=== PATIENT | female | born 1985 | race Caucasian/White ===

== ENCOUNTER 2017-09-11 14:46 | Emergency (ER) | payer OTHER ==
--- NOTE | 2017-09-11 14:58 | ED Physician Documentation ---
General Adult - HISTORIAN Historian: patient - HPI Stated Complaint: lightheaded, chest pressure Chief Complaint: General Adult Onset: hours Timing: still present Further Comments: yes (Pt is a 31 yo female who has had abd issues--diarrhea, constipation, bloating after eating even small meals. Pt had a colonoscopy this am and was found to have low BP=88/52 prior to the procedure. Pt was given a lesser than usual dose given Propofol because of her BP. Pt was d/c'd to home and later in the day, developed dizziness, tingling in hands and feet. She felt that her legs were very heavy and she had tightness in her chest. Pt has had endoscopic studies before and believes she had Propofol previously, and did not have BP problems on these occasions.) - ROS CONST: weakness CVS/RESP: chest pain (tightness) GI/: nausea, other (colonoscopy this am) MS/SKIN/LYMPH: none NEURO/PSYCH: dizziness, tingling - PAST HX Past History: other (GI problems) Allergies/Adverse Reactions: Allergies Allergy/AdvReac Type Severity Reaction Status Date / Time amoxicillin [Amoxicillin] Allergy Mild Verified 09/11/17 15:19 - SOCIAL HX Smoking History: cigarettes - FAMILY HX Family History: No - VITAL SIGNS Vital Signs: Vital Signs Temp Pulse Resp BP Pulse Ox 115/52 01/13/14 21:49 - REVIEWED ASSESSMENTS Nursing Assessment Reviewed: Yes Vitals Reviewed: Yes Progress - Progress Progress: Pt had a neg test prior to colonoscopy this am. BP prior to colonoscopy this am was 88/52. D/w Dr. Gardner, [facility]. GI who reviewed record of colonoscopy, though he was not involved in the procedure himself. Dr. Gardner stated that the anesthesia report had not been dictated yet, but as far as he could tell from the colonoscopy report, the pt got 1 L IVF. It did not appear that bx's were taken , he said, but a CT might be done if there were concern for perforation on the basis of clinical exam. u/a - neg NS 1 L BP 81/46 NS 1 L IVF BP 86/57 Pt declined further IVF and declined CT scan and signed out AMA. Pt did not appear to have significant distress during the course of her ER visit , and stated that her chest tightness had subsided at the time of discharge. - EKG/XRAY/CT EKG: NSR (HR=81; normal axis; normal KS interval.) General Adult Physical Exam - PHYSICAL EXAM GENERAL APPEARANCE: mild distress EENT: pharynx normal NECK: normal inspection, supple RESPIRATORY: no resp distress, chest non-tender, breath sounds normal CVS: reg rate & rhythm, heart sounds normal ABDOMEN: soft, non-tender, decreased BS BACK: normal inspection, no CVA tenderness SKIN: warm/dry, normal color EXTREMITIES: non-tender, normal range of motion, no edema NEURO: oriented X3, motor nml, sensation nml Discharge Clincal Impression: s/p colonoscopy today Hypotension Qualifiers: Hypotension type: unspecified hypotension type Qualified Code(s): I95.9 - Hypotension, unspecified Referrals: Primary Doctor,No [Primary Care Provider] - Condition: Stable Disposition: 07 AGAINST MEDICAL ADVICE Decision to Admit: NO Decision Time: 18:55
[2017-09-11 15:16] LABS: BASOPHILS % 0.3 (0.0-1.5); EOSINOPHILS % 1.5 % (0.0-6.8); MEAN CORPUSCULAR HEMOGLOBIN 31.4 pg (28.0-34.0); MEAN CORPUSCULAR VOLUME 93.8 fl (80.0-100.0); MONOCYTES % 3.1 % (0.0-11.0); NEUTROPHILS # 3.4 # k/uL (1.4-7.7)
[2017-09-11] MEDS: 0.9 % SODIUM CHLORIDE 500 ML IV ONE ×2 (15:20→16:32)
[2017-09-11 15:33] LABS: eGFR (African) > 60; eGFR (Non-African) > 60
[2017-09-11] MEDS: 0.9 % SODIUM CHLORIDE 1,000 ML IV ONE (17:32)
[2017-09-11] MEDS ORDERED: 0.9 % SODIUM CHLORIDE 500 ML IV ONE (18:30)
[2017-09-11 18:55] VITALS: BP 86/57
[2017-09-12 06:01] LABS: APPEARANCE,URINE CLEAR (CLEAR); COLOR,URINE YELLOW (YELLOW)
[2017-09-12 06:02] LABS: OCCULT BLOOD,URINE NEGATIVE (NEGATIVE); UROBILINOGEN URINE 0.2 Eu (0.2-1.0)
== END 2017-09-11 18:52 | disposition left against medical advice (07) ==
LOC: ED 14:46
DX: I95.9 Hypotension, unspecified (principal)
CPT/HCPCS: 80053; 81002; 84484; 85025; 96365; 96366; 99282; 99283; J7060; J7030; S1016

== ENCOUNTER 2017-09-12 05:42 | Emergency (ER) | payer OTHER ==
--- NOTE | 2017-09-12 06:11 | ED Physician Documentation ---
General Adult - HISTORIAN Historian: patient, other (grandma ) - HPI Stated Complaint: facial swelling, extremity weakness Chief Complaint: General Adult Onset: hours (1) Timing: still present Severity: mild Further Comments: yes (she feels her face hands and feet are swollen. She states the roof of her mouth is sore . She was seen last night for low blood pressure post colonoscopy and she left AMA . She reports that she was given several bags of fluids and is not sure if that is why she is swollen. She states she slept fine. Denies any abdominal pain.) Last known Well Code/Unknown Code: Unknown - ROS CONST: no problems GI/: none MS/SKIN/LYMPH: ankle swelling, other (pedal swelling and facial ) NEURO/PSYCH: denies: headache, fainting, dizziness, tingling, numbness, difficulty walking, difficulty with speech - PAST HX Past History: none Surgeries/Procedures: other (colonocsopy yesterday ) Immunizations: UTD Allergies/Adverse Reactions: Allergies Allergy/AdvReac Type Severity Reaction Status Date / Time amoxicillin [Amoxicillin] Allergy Mild Verified 09/12/17 06:06 steroids AdvReac Hallucinati Uncoded 09/12/17 06:06 ons - SOCIAL HX Smoking History: non-smoker Alcohol Use: none Drug Use: none - FAMILY HX Family History: No - VITAL SIGNS Vital Signs: Vital Signs Temp Pulse Resp BP Pulse Ox 97.5 F L 94 H 16 105/73 100 09/12/17 05:42 09/12/17 05:42 09/12/17 05:42 09/12/17 05:42 09/12/17 05:42 - REVIEWED ASSESSMENTS Nursing Assessment Reviewed: Yes Vitals Reviewed: Yes Progress - Progress Progress: 0646: Labs discussed. Pt and mom are asking why the roof of her mouth is sore. No obvious injuries. Did encourage her to call her surgeon after the office opens. She is asking if she can take benadryl. DG General Adult Physical Exam - PHYSICAL EXAM GENERAL APPEARANCE: no distress EENT: eye inspection normal, ENT inspection normal NECK: normal inspection RESPIRATORY: no resp distress, chest non-tender, breath sounds normal CVS: reg rate & rhythm, heart sounds normal, equal pulses, no murmur ABDOMEN: soft, no organomegaly, normal bowel sounds, no distension, non-tender SKIN: warm/dry, normal color EXTREMITIES: non-tender, normal range of motion, no edema NEURO: oriented X3, CN's nml as tested, motor nml, sensation nml, mood/affect nml, cognition normal Discharge Clincal Impression: Swelling Referrals: Abeba Cole MD [Primary Care Provider] - 2 Days Comments: Continue to push fluids Call surgeon about mouth pain Benadryl as needed Return to ER for any concerns Condition: Stable Disposition: 01 HOME, SELF-CARE Decision to Admit: NO (t) Date of Decison to Admit: 09/12/17 Decision Time: 06:56
[2017-09-12 06:24] LABS: BASOPHILS % 0.5 (0.0-1.5); EOSINOPHILS % 1.9 % (0.0-6.8); MEAN CORPUSCULAR VOLUME 92.6 fl (80.0-100.0); MONOCYTES % 4.3 % (0.0-11.0); NEUTROPHILS # 2.3 # k/uL (1.4-7.7)
[2017-09-12 06:42] LABS: eGFR (African) > 60; eGFR (Non-African) > 60
[2017-09-12 07:03] VITALS: BP 94/69
== END 2017-09-12 07:00 | disposition home or self-care (01) ==
LOC: ED 05:42
DX: R60.9 Edema, unspecified (principal)
CPT/HCPCS: 80053; 85025; 99282

== ENCOUNTER 2018-04-10 15:58 | Outpatient (CLI) | payer OTHER | END 2018-04-10 16:14 | disposition home or self-care (01) | LOC: LABRHC 15:58 | PROVIDERS: ATTEND Family Medicine | DX: R30.0 Dysuria (principal) | CPT/HCPCS: 87086 ==

== ENCOUNTER 2019-07-04 07:20 | Emergency (ER) | payer OTHER ==
[2019-07-04 07:39] VITALS: BP 112/75
--- NOTE | 2019-07-04 07:59 | ED Physician Documentation ---
General Adult - HISTORIAN Historian: patient - HPI Stated Complaint: L rib pain Chief Complaint: General Adult Additional Information: 33 year old female presents with c/o left sided rib discomfort- states it was on the right rib- started about a week ago; has stated that she has had a cough with some congestion. Water bottle fell on the floor- she was able to pick it up without difficulty; tender on palpation between 9th and 10th left rib. Onset: days ago (1-2 weeks) Timing: still present Severity: mild - ROS CONST: no problems EYES/ENT: none CVS/RESP: cough GI/: denies: vomiting, nausea MS/SKIN/LYMPH: none NEURO/PSYCH: denies: headache - PAST HX Past History: other (anxiety, depression, IBS) Other History: none Immunizations: UTD Allergies/Adverse Reactions: Allergies Allergy/AdvReac Type Severity Reaction Status Date / Time amoxicillin [Amoxicillin] Allergy Mild Verified 07/04/19 07:32 steroids AdvReac Hallucinati Uncoded 07/04/19 07:32 ons Home Medications: Ambulatory Orders Medication Instructions Recorded Norethindrone-Ethinyl Estrad 1 tab PO DAILY 07/04/19 [Pirmella 7-7-7-28 Tablet] - SOCIAL HX Smoking History: greater than 1 pack/day Alcohol Use: none Drug Use: none - FAMILY HX Family History: No - VITAL SIGNS Vital Signs: Vital Signs Temp Pulse Resp BP Pulse Ox 97.6 F 108 H 14 112/75 100 07/04/19 07:21 07/04/19 07:21 07/04/19 07:21 07/04/19 07:21 07/04/19 07:21 - REVIEWED ASSESSMENTS Nursing Assessment Reviewed: Yes Vitals Reviewed: Yes ED Results Lab/Radiology - Radiology Radiology Impressions: Chest, PA and lateral History: Chest pain Findings: The heart, lungs, pleura, mediastinum and bony thorax are normal. Impression: Normal. Electronically signed on Jul 04, 2019 8:02:19 AM WATER TREATMENT SPECIALIST by: Lux Verduzco - Orders Orders: ED Orders Category Date Time Status CHEST 2VIEW [RAD] Stat Exams 07/04/19 Ordered URINE HCG Stat Lab 07/04/19 07:40 Ordered General Adult Physical Exam - PHYSICAL EXAM GENERAL APPEARANCE: no distress EENT: eye inspection normal, ENT inspection normal, pharynx normal, no signs of dehydration, DEBORA NECK: normal inspection, supple RESPIRATORY: breath sounds normal CVS: heart sounds normal ABDOMEN: soft, normal bowel sounds SKIN: warm/dry, normal color EXTREMITIES: non-tender, normal range of motion, no evidence of injury NEURO: oriented X3, CN's nml as tested, motor nml, sensation nml, mood/affect nml, cognition normal Discharge Clincal Impression: Rib pain on left side Referrals: Abeba Cole MD [Primary Care Provider] - 2 Days Additional Instructions: May alternate Tylenol and Ibuprofen as needed for rib discomfort Use heating pad May use Biofreeze, Icy Hot, Salonpas Follow up with PCP as needed Condition: Good Disposition: 01 HOME, SELF-CARE Decision to Admit: NO Decision Time: 08:15
--- NOTE | 2019-07-04 08:05 | Diagnostic Imaging Report ---
PATIENT MR#: [id number] PATIENT PATIENT NAME: CASSIE FRANCES DATE OF : 1985 REFERRING PHYSICIAN: Carrie Pink EXAM DATE: 07/04/2019 ACCESSION NUMBER: [id number] EXAM DESCRIPTION: CHEST 2VIEW Chest, PA and lateral History: Chest pain Findings: The heart, lungs, pleura, mediastinum and bony thorax are normal. Impression: Normal. Read by: Dr. Lux Verduzco Transcribed by: Transcribed Date: Electronically signed by: Dr. Lux Verduzco Date signed: 07/04/2019 8:05:11 AM
== END 2019-07-04 08:15 | disposition home or self-care (01) ==
LOC: ED 07:20
DX: R07.81 Pleurodynia (principal)
CPT/HCPCS: 71046; 81025; 99282; 99283